=== PATIENT | male | born 1975 | race Caucasian/White ===

== ENCOUNTER 2017-01-01 07:29 | Emergency (ER) | payer OTHER ==
[2017-01-01 07:37] VITALS: BP 130/65; TEMP 98.4
--- NOTE | 2017-01-01 08:04 | EDPHY ---
HPI/HX/ROS/PE/MDM Narrative: CHIEF COMPLAINT: Rib injury HPI: This patient is a 41 year old male complaining of left rib pain secondary to an injury 12/28/16, four days ago, while surfing in [facility]. His surfboard struck in him the ribs on the left and "knocked the wind out of him". He was unable to take deep breaths, and felt considerable pain and a popping sensation. He denies striking his abdomen, or any abdominal pain. Today he has continued left midclavicular line rib pain, especially with deep inspiration or twisting motions. No fever, shortness of breath, hematuria, or other associated symptoms. REVIEW OF SYSTEMS: Aside from elements discussed in the HPI, a comprehensive 10-point review of systems was reviewed and is negative. PMH: Denies SOCIAL HISTORY: Friend at bedside. Lives in [place]. PHYSICAL EXAM: General:Patient is alert, in no acute distress. ENT:Eyes are normal to inspection. ENT inspection normal. Neck: Normal inspection. Full range of motion. Respiratory: Tenderness at level of nipple, midclavicular line. No crepitus. No respiratory distress. Breath sounds normal bilaterally. Cardiovascular: Regular rate and rhythm. Strong peripheral pulses. Normal cap refill. Abdomen:The abdomen is nontender to palpation. There are no peritoneal signs. There are normal bowel sounds. Back: Normal to inspection. No tenderness to palpation. Skin: Normal color. No rash. Warm and dry. Extremities: Normal appearance. Full range of motion. Neuro: Oriented x3. Normal motor function. Normal sensory function. ED Course: 41 year old male presents with left rib pain secondary to striking a surfboard with his chest. Physical exam reveals tenderness at the level of the nipple along the midclavicular line. No crepitus noted. Plan for rib x-ray to evaluate for osseous abnormalities or other acute processes. 8:[address] Lawton, radiologist. No fracture identified on x-ray. No pneumothorax or other acute findings. Plan to discharge home in good condition with prescription for Percocet for pain relief. He will follow up with his primary care physician for reevaluation. Return precautions discussed. The patient is comfortable with this plan. MDM: This patient presents with rib tenderness after blunt injury. XR does not reveal fracture, but I think he likely has a nondisplaced fracture based on history and physical. He has no abdominal tenderness to suggest splenic or solid organ injury. There are no signs of PTX or mediastinal injury. - Data Points Imaging Results: Imaging Impressions Ribs w/Chest X-Ray 01/01/17 07:41 Impression: There is no rib fracture identified. Findings were discussed with Collin Quintero MD at 8:22 AM, on 01/01/2017. Imaging: Discussed imaging studies w/ bucket wash operator Radiologist, I viewed and interpreted images myself General Time Seen by Provider: 01/01/17 07:52 Initial Vital Signs: Initial Vital Signs Temperature (C) 36.9 C 01/01/17 07:34 Heart Rate 52 L 01/01/17 07:34 Respiratory Rate 16 01/01/17 07:34 Blood Pressure 130/65 H 01/01/17 07:34 O2 Sat (%) 96 01/01/17 07:34 O2 Delivery Mode Room Air Allergies/Adverse Reactions: No Known Allergies Allergy (Unverified 04/03/12 18:34) Home Medications: Medication Instructions Recorded Albuterol 01/01/17 Prozac 10 MG (*) 01/01/17 oxyCODONE/APAP 5/325 [Percocet 1 - 2 tab PO Q4H PRN #14 tab 01/01/17 5/325 (*)] Departure - Departure Disposition: Home, Routine, Self-Care Clinical Impression: Left rib fracture Condition: Good Instructions: Rib Fracture (ED) Additional Instructions: 1. Take your Percocet as prescribed for severe pain. You may also take ibuprofen or Tylenol as directed on the packaging. Do not take Tylenol while you are taking Percocet, as this medication already contains acetaminophen. 2. Remember to take deep breaths often. 3. Follow up with your primary care physician this week for continued evaluation. 4. Return to the emergency department for fever, worsening pain, shortness of breath or difficulty breathing, abdominal pain, blood in your urine, or other concerns. Referrals: Jasmeet Dowd MD [Primary Care Provider] - As per Instructions Prescriptions: oxyCODONE/APAP 5/325 [Percocet 5/325 (*)] 1 - 2 tab PO Q4H PRN #14 tab PRN Reason: Pain, Severe Report Scribed for: Collin Quintero Report Scribed by: Melinda Olivia Date of Report: 01/01/17 Time of Report: 08:02 Physician Review and Approval Statement: Portions of this note were transcribed by an ED scribe. I personally performed the history, physical exam, and medical decision making; and confirm the accuracy of the information in the transcribed note.
[2017-01-01 08:29] VITALS: PULSE 56; RESP 18; O2SAT 100
== END 2017-01-01 08:36 | disposition home or self-care (01) ==
DX: S22.32XA Fracture of one rib, left side, initial encounter for closed fracture (principal); W22.8XXA Striking against or struck by other objects, initial encounter

== ENCOUNTER → 2017-11-03 | Outpatient (CLI) | payer OTHER | LOC: BMCIMAGING 08:28 | PROVIDERS: ATTEND Orthopaedic Surgery Hand Surgery | DX: M79.644 Pain in right finger(s) (principal) ==